=== PATIENT | female | born 1995 | race Caucasian/White ===

== ENCOUNTER 2019-03-07 23:53 | Outpatient (CLI) | payer OTHER ==
[~2019-03-07] VITALS: Ht 160 cm; Wt 73.5 kg
[2019-03-08 00:12] VITALS: Ht 160 cm; Wt 73.5 kg
[2019-03-08] MEDS ORDERED: FER325 PO (00:17)
[2019-03-08] MEDS ORDERED: PREN1TAB13 PO (00:17)
[2019-03-08] MEDS ORDERED: LACTATED RINGER'S 1,000 ML IV ONE (01:30)
[2019-03-08] MEDS ORDERED: CEFTRIAXONE 1 GM/50 ML (PMX) 50 ML IVPB ONE (02:30)
[2019-03-08] MEDS ORDERED: LACTATED RINGER'S 1,000 ML IV SCH (02:30)
--- NOTE | 2019-03-08 03:51 | TRIAGE ---
OB Triage Datetime Report Generated by CPN: 03/08/2019 03:50 Datetime: 03/08/2019 02:19 Labor Evaluation Frequency: X0 Monitor Mode: External Duration (sec)2399: X0 Pattern: Normal: <= 5 Contractions in 10 Minutes Resting Tone [place]: Relaxed Heart Rate FHR Baseline Rate: 160 Monitor Mode: External US Variability: Moderate 6-25 bpm Accelerations: 15X15 Decelerations: None Category: Category I Datetime: 03/08/2019 02:05 Comments: LOSS OF CONTACT. PT SITTING UPRIGHT GETTING EVALUATED BY DR. BARRON Datetime: 03/08/2019 01:30 Stage of : OB Triage Labor Evaluation Frequency: X0 Monitor Mode: External Duration (sec)2399: X0 Pattern: Normal: <= 5 Contractions in 10 Minutes Resting Tone [place]: Relaxed Heart Rate FHR Baseline Rate: 165 Monitor Mode: External US FHR Baseline Changes: Tachycardia Variability: Moderate 6-25 bpm Accelerations: 15X15 Decelerations: None Category: Category II Datetime: 03/08/2019 00:38 Stage of : OB Triage Labor Evaluation Frequency: X0 Monitor Mode: External Duration (sec)2399: X0 Pattern: Normal: <= 5 Contractions in 10 Minutes Resting Tone [place]: Relaxed Heart Rate FHR Baseline Rate: 170 Monitor Mode: External US FHR Baseline Changes: Tachycardia Variability: Moderate 6-25 bpm Accelerations: 15X15 Decelerations: None Category: Category II Datetime: 03/08/2019 00:24 Stage of : OB Triage Maternal Assessment Level of Consciousness: Keenly Alert, Responsive DTR's/Clonus: DTRs 2+; No Clonus Headache: Denies Blurred Vision: No Respiratory Effort: Unlabored; Regular Rhythm; Equal Expansion Breath Sounds, Left: Clear and Equal Breath Sounds, Right: Clear and Equal Nausea/Vomiting: Denies RUQ Epigastric Pain: Denies Lower Extremities Edema: None Degree: None Upper Extremities Edema: None Degree: None Facial Edema: None Temperature Route: Oral Fall Risk Assessment History of Falling: (0) No Secondary Diagnosis: (0) No Ambulatory Aid: (0) Bedrest/Nurse Assist IV Therapy: (0) No Gait: (0) Normal/Bedrest/Immobile Mental Status: (0) Oriented to Own Ability Fall Score: 0 Fall Risk Score Definition: No Risk: No action required Pain Assessment Pain Scale: 8 Pain Presence: Constant Pain Type: Dull Pain Location: Abdomen; Back Pain Relief Measures: Comfort Measures Datetime: 03/08/2019 00:23 Time of Arrival: 03/07/2019 23:50 EGA: 32.1 Arrived By: Wheelchair Arrived From: Home Chief Complaint: FLU LIKE SX ABDOMINAL AND BACK PAIN SINCE 2099 Movement: Present Contractions: Denies/Absent Rupture of Membranes: Denies Vaginal Bleeding: None Vaginal Discharge: Denies Recent Sexual Intercouse: Denies Abdominal Trauma: Not Applicable Patient Complaints: Back Pain; Fever; Cough; Dizziness; Other Time Provider Notified: 03/07/2019 23:50 Provider Notified: DR. BARRON Initial Plan: EFM, CALL OB Datetime: 03/08/2019 00:04 Monitor Mode: External Contraction Comments: APPLIED Monitor Mode: External US Comments: APPLIED
[2019-03-08] MEDS ORDERED: CEPH-443 PO (04:01)
== END 2019-03-08 02:57 | disposition home or self-care (01) ==
LOC: OBT 23:53 → L-D 23:55 → OBT 03-08 02:57
PROVIDERS: ATTEND Obstetrics & Gynecology
DX: O98.513 Other viral diseases complicating pregnancy, third trimester (principal); O24.419 Gestational diabetes mellitus in pregnancy, unspecified control; Z3A.32 32 weeks gestation of pregnancy
CPT/HCPCS: 36415; 76818; 81001; 85025; 87086; 96360; J0696; J7120; Z7500; G0463

== ENCOUNTER 2019-03-08 03:01 | Emergency (ER) | payer OTHER ==
[~2019-03-08] VITALS: Ht 160 cm; Wt 73.9 kg
[~2019-03-08 03:01] MED LIST: FER325 PO; PREN1TAB13 PO
[2019-03-08 03:05] VITALS: Ht 160 cm; Wt 73.9 kg
--- NOTE | 2019-03-08 03:51 | ERD ---
ER Documentation Chief Complaint Chief Complaint Fever, ST, cough today 8 months preg HPI This is a very pleasant 23-year-old female who presents for evaluation of fever at home as well as cough for the last 2 days. She is currently 32 weeks . She was seen in OB triage, where she was cleared from standpoint, she also had labs which were overall unremarkable. She had a urine analysis which showed leukoesterase, as well as 10 WBCs, but there were squames noted. I discussed this with the patient, and she had stated that she did not want to be treated for the UTI, and she preferred not to be on medications, for the sake of the . She will plan on following up with her OB, pending the urine culture. She received IV fluids as well. She denies chest pain, she denies shortness of breath, she has not had hemoptysis she has not had unilateral leg swelling. ROS All systems reviewed and are negative except as per history of present illness. Medications Home Meds Reported Medications Ferrous Sulfate* (Ferrous Sulfate*) 325 Mg Tabec, 325 MG PO DAILY, TAB 03/08/19 Pnv95/Ferrous Fumarate/FA ( Vitamins Tablet) 1 Each Tablet, 1 EACH PO, TAB 03/08/19 Allergies Allergies: Coded Allergies: amoxicillin (Verified Allergy, Unknown, 03/08/19) PMhx/Soc History of Surgery: Yes (rhinoplasty) Anesthesia Reaction: No Hx Neurological Disorder: No Hx Respiratory Disorders: No Hx Cardiac Disorders: No Hx Psychiatric Problems: No Hx Miscellaneous Medical Probl: No Hx Alcohol Use: No Hx Substance Use: No Hx Tobacco Use: No Smoking Status: Never smoker Physical Exam Vitals Vital Signs Date Temp Pulse Resp B/P (MAP) Pulse Ox O2 O2 Flow FiO2 Time Delivery Rate 03/08/19 98.7 140 16 101/57 96 03:05 (72) Physical Exam Const: Pleasant, well-appearing well-nourished Head: Atraumatic Eyes: Normal Conjunctiva ENT: Normal External Ears, Nose and Mouth. Oral mucosa is dry Neck: Full range of motion. No meningismus. Resp: Clear to auscultation bilaterally, no wheezes rales rhonchi Cardio: Sinus tachycardia with regular rhythm, no murmurs Abd: Soft, non tender, non distended, no rebound or guarding. Normal bowel sounds Skin: No petechiae or rashes Back: No midline or flank tenderness Ext: No cyanosis, or edema Neur: Awake and alert Psych: Normal Mood and Affect Procedures/MDM Is a 23-year-old female presents for evaluation of cough and sore throat. On exam she appears mildly dehydrated, she had IV fluids, in OB triage, rapid strep was sent which was negative. Her symptoms are most consistent with an upper respiratory tract infection. I considered pulmonary embolism, however she has no cardiopulmonary symptoms, with no shortness of breath, no chest pain and no exertional symptoms. I suspect that her tachycardia is most likely related to volume depletion, I offered her another bolus IV fluids, however she preferred to go home, as noted above, she did not want to start treatment for bacteriuria, and preferred to wait for the culture and was planning on follow-up with OB doctor. Strict return precautions were given for any worsening symptoms, shortness of breath, chest pain, or any other concerns at discharge the patient was in no distress. EKG: Rate/Rhythm: Sinus tachycardia at a rate of 111 QRS, ST, T-waves: No changes consistent w/ acute ischemia Impression: No evidence of ischemia or arrhythmia Departure Diagnosis: Primary Impression: Fever Fever type: unspecified Qualified Codes: R50.9 - Fever, unspecified Additional Impression: Sore throat Condition: Stable Patient Instructions: Self-Care for Sore Throats, Fever Control (Adult) Additional Instructions: Call your primary care doctor TOMORROW for an appointment during the next 1-2 days.See the doctor sooner or return here if your condition worsens before your appointment time. ELDON ROBERTSON MD Mar 08, 2019 03:51
[2019-03-08] MEDS ORDERED: CEPH-443 PO (04:01)
[2019-03-08 04:13] VITALS: BP 102/56; PULSE 120; RESP 16
--- NOTE | 2019-03-10 08:35 | PN ---
Triage Information Date/Time late entry for service rendered on March 07 Reason for visit: Abd/pelvic pain ( back pain , flu symptoms,low grade fever, body ache) Weeks of Gestation 32w2d /Para primigravida Diabetes: gestational Diabetes management: diet controlled Hypertention: none Objective Vital Signs Date Temp Pulse Resp B/P (MAP) Pulse Ox O2 O2 Flow FiO2 Time Delivery Rate 03/08/19 120 16 102/56 98 Room Air 04:13 (71) 03/08/19 98.7 03:05 Heart Rate: 150's (170) Heart Rate Comments maternal tachycardia Contractions: None Exam CVA neg for tenderness Results/Medications Imaging Results BPP 04/11 MIKE 10.3 Disposition: Assessment/Plan A IUP 32w2d viral syndrome P sent her to ER for further evaluation urine culture was sent out SURENDRA BARRON MD Mar 10, 2019 08:35
== END 2019-03-08 04:15 | disposition home or self-care (01) ==
LOC: E/R 03:01
DX: O99.513 Diseases of the respiratory system complicating pregnancy, third trimester (principal); J02.9 Acute pharyngitis, unspecified; O99.89 Other specified diseases and conditions complicating pregnancy, childbirth and the puerperium; R50.9 Fever, unspecified; R00.0 Tachycardia, unspecified; Z3A.32 32 weeks gestation of pregnancy
CPT/HCPCS: 87880; 93005; Z7502